=== PATIENT | male | born 1985 | race Caucasian/White ===

== ENCOUNTER 2020-09-28 14:52 | Outpatient (CLI) | payer OTHER, SELFPAY ==
--- NOTE | ~2020-09-28 | XR_ITS ---
XR knee LT 3V DATE: 09/28/2020 15:18 INDICATION: Lateral left knee pain TECHNIQUE: [place], AP, lateral views COMPARISON: None FINDINGS: Tricompartment osteoarthritis is noted, involving particularly the patellofemoral and media l compartments, with prominent periarticular spurring, moderate joint space narrowing. Subtle chondro calcinosis. No fracture or dislocation or joint effusion. No periosteal reaction or bone destruction. IMPRESSION: Prominent osteoarthritis and subtle chondrocalcinosis Reviewed, dictated and finalized at location B.
== END 2020-09-28 14:53 | disposition home or self-care (01) ==
LOC: CHSIMG 14:56
PROVIDERS: PCP Family Medicine; Visit Provider Family Medicine
DX: M25.562 Pain in left knee (principal)
CPT/HCPCS: 73562

== ENCOUNTER 2020-10-07 08:19 | Outpatient (CLI) | payer OTHER, SELFPAY ==
--- NOTE | ~2020-10-07 | MR_ITS ---
EXAMINATION: MR knee LT wo con DATE: 10/07/2020 09:11 INDICATION: Left knee pain. TECHNIQUE: Magnetic resonance imaging (MRI) of the left knee was performed without intravenous contra st. Sequences included axial PD-weighted FS FSE, coronal PD-weighted FSE and PD-weighted FS FSE, sagi ttal PD-weighted FSE, and sagittal T2-weighted FS FSE. COMPARISON: Left knee radiographs 09/28/2020 FINDINGS: Medial compartment: Medial meniscus is normal. There is shallow partial-thickness cartilage loss of femoral condyle and t ibial condyle. Marginal osteophytes are noted. Lateral compartment: There is maceration of body and posterior horn of lateral meniscus. There is full-thickness cartilage loss of tibial condyle involving the central, lateral, and posterior articular surface with cortical remodeling. There is full-thickness cartilage loss of femoral condyle involving the central, lateral , and posterior articular surface with mild subchondral edema-like marrow signal intensity. Patellofemoral compartment: There is cartilage surface irregularity of patella. There is deep partial thickness cartilage loss of central and lateral trochlea with mild subchondral edema-like marrow signal intensity. Ligaments and tendons: The anterior and posterior cruciate ligaments are normal. Medial collateral ligament and lateral rosalia ateral ligament complex are intact. There is mild patellar tendinopathy. Fluid: There is a small knee joint effusion. There are loose bodies in the posterior knee joint and popliteu s tendon sheath. IMPRESSION: 1. Severe chondrosis of lateral compartment, moderate chondrosis of patellofemoral compartment, and m ild chondrosis of medial compartment. 2. Tear of lateral meniscus. 3. Small knee joint effusion with loose bodies. Reviewed, dictated and finalized at location A. IMPRESSION: 1. Severe chondrosis of lateral compartment, moderate chondrosis of patellofemo ral compartment, and mild chondrosis of medial compartment. 2. Tear of lateral meniscus. 3. Small knee joint effusion with loose bodies.
== END 2020-10-07 08:20 | disposition home or self-care (01) ==
LOC: CHSIMG 08:20
PROVIDERS: PCP Family Medicine; Visit Provider Family Medicine
DX: M25.562 Pain in left knee (principal)
CPT/HCPCS: 73721

== ENCOUNTER 2021-09-02 09:37 | Emergency (ER) | payer SELFPAY ==
--- NOTE | ~2021-09-02 | XR_ITS ---
. EXAMINATION: XR knee LT 3V DATE: 09/02/2021 10:25 INDICATION: Medial left knee pain post twisting injury TECHNIQUE: Anteroposterior, oblique and crosstable lateral views of the left knee were obtained COMPARISON: None. FINDINGS: Alignment is normal. No fracture. At least mild joint space narrowing with moderate size marginal os teophytes at the lateral compartment. Additional small to moderate size marginal osteophytes in the m edial and patellofemoral compartments. No joint effusion/layering lipohemarthrosis. Soft tissues are unremarkable. IMPRESSION: 1. No acute osseous abnormality. 2. At least mild tricompartmental osteoarthritis of the left knee although severity of joint space na rrowing can be underestimated on nonweightbearing imaging. Reviewed, dictated and finalized at location A. IMPRESSION: 1. No acute osseous abnormality. 2. At least mild tricompartmental osteoarthritis of the left knee although graham rity of joint space narrowing can be underestimated on nonweightbearing imaging .
[2021-09-02 09:45] VITALS: BP 150/102; PULSE 78; RESP 20; TEMP 36.6; O2SAT 98
[2021-09-02] MEDS: KETOROLAC (*BKC) 60 MG/2 ML VIAL IM (10:06)
--- NOTE | 2021-09-02 10:33 | ED.LOWEXIN ---
HPI - Extremity Injury (Lower) General Chief Complaint: Extremity Injury, Lower Stated Complaint: left knee pain/twisting injury Time Seen by Provider: 09/02/21 09:40 Source: patient and RN notes reviewed Mode of arrival: ambulatory Limitations: no limitations History of Present Illness complaint: knee injury Type of Injury: hyperextension Place: work Severity: moderate Severity scale (1-10): 7 Relieving factors: nothing Exacerbating factors: weight bearing and movement Associated symptoms: snap/pop sensation and able to partially bear weight Other symptoms: none Treatments prior to arrival: cold therapy Related Data Allergies Allergy/AdvReac Type Severity Reaction Status Date / Time No Known Allergies Allergy Verified 10/31/20 11:00 Review of Systems Review of Systems: All systems reviewed & are unremarkable except as noted in HPI and below PMFSH Past Medical History Medical History Arthritis Left knee pain Wheezing Surgical History Surgical History History of arthroscopic knee surgery Meniscus repair History of hernia repair Social History Social History Smoking packs per day: 1 Smoking cigarettes per day: 20.0 Years smoked: 15 Smoking pack-years: 15.00 Smoking status: Current every day smoker Tobacco type: cigarettes and e-cigarettes/vaping Alcohol intake: never Substance use: current Substance use type: marijuana Exam Const: General: healthy appearing, no acute distress and alert Nutritional Appearance: obese Orientation/consciousness: patient oriented x3 HENMT: Head: normal to inspection Ears: external ears normal, TM's normal bilaterally and EAC's normal General nose exam: Normal external nose present and Normal nares present Face and sinus: normal facial exam and sinuses nontender Mouth: Yes moist mucous membranes Eyes: Conjunctivae: conjunctivae normal Pupils: Equal, round and reactive pupils present EOM: EOMs intact bilaterally Neck: Neck: normal visual inspection and no lymphadenopathy Chest: Chest palpation & inspection: normal inspection of the chest Resp: Effort & Inspection: normal respiratory effort Auscultation: clear to auscultation bilaterally Cardio: Rate: regular rate Rhythm: regular rhythm GI: GI Palp: Yes Soft to palpation and No Tenderness to palpation present (GI) Auscultation: normal bowel sounds : General: Yes bladder normal to palpation and Yes no CVA tenderness Male General Exam: Yes normal external exam Back/Spine/Pelvis: Back: no CVA tenderness Skin: General skin exam: normal color Rashes: no rashes Neuro: General: patient oriented x3, moves all extremities, no meningeal signs, no focal motor deficits and CN's II-XI intact bilaterally Extrem: General: no pedal edema Other: minimal effusion medial left knee with full ROM, pain-ful. NO acute neurovascular deficit. Psych: Appearance: grossly normal and well kempt Mental Status: mental status grossly normal Affect: normal affect Attitude: cooperative Thought content: Yes Normal thought content present Course Course Emergency Course: Pt was stable in the ED, less knee pain. Reevaluation(s) Reevaluation #1: VSS. Consultations Date: 09/02/21 Time: 10:25 MDM - Extremity Injury (Lower) Differential Diagnosis Differential diagnosis: Likely acute internal derangement of knee Medical Records Attestation: I reviewed the patient's medical records. Imaging Data Radiologist's impression: See the report. Critical Care Time Critical Care Time Critical Care Time: No Total Critical Care Time: 0 Discharge Plan Discharge Clinical Impression: Left knee pain Patient Disposition: Home, Self-Care Condition: Stable Instructions: Antibiotic Form, Knee Sprain (ED) Additional Instructions: Home. May RTC prn
[2021-09-02 11:10] VITALS: BP 153/98; PULSE 75; RESP 20; TEMP 36.6; O2SAT 97
== END 2021-09-02 11:15 | disposition home or self-care (01) ==
PROVIDERS: Emergency Provider Emergency Medicine; PCP Family Medicine
DX: M25.562 Pain in left knee (principal)
CPT/HCPCS: 73562; 96372; 99283; J1885; L1830

== ENCOUNTER 2021-12-25 08:50 | Outpatient (CLI) | payer OTHER, SELFPAY ==
--- NOTE | ~2021-12-25 | XR_ITS ---
XR knee LT min 4V 12/25/2021 09:37 Indication: Left knee pain Procedure: 4 views left knee Comparison: 09/02/2021 Findings: There is moderate tricompartment osteoarthritis of the left knee. No fracture, subluxation or dislocation. No significant joint effusion. Impression: 1: Moderate tricompartment osteoarthritis of the left knee. Reviewed, dictated and finalized at location B. Impression: 1: Moderate tricompartment osteoarthritis of the left knee.
== END 2021-12-25 08:51 | disposition home or self-care (01) ==
LOC: CHSIMG 08:57
PROVIDERS: PCP Family Medicine; Visit Provider Orthopaedic Surgery
DX: M25.562 Pain in left knee (principal); M17.12 Unilateral primary osteoarthritis, left knee
CPT/HCPCS: 73564

== ENCOUNTER 2022-01-16 01:30 | Day surgery (SDC) | payer OTHER, SELFPAY ==
[2022-01-07 14:49] VITALS: BMI 45.6
--- NOTE | 2022-01-07 15:23 | SUR.PREOP ---
Report to the Outpatient Waiting Room, entrance under the green pavilion located off [facility], at time 1130 on date 01/16/2022. OR Time: 1330. - You and your visitor will be asked to self-screen and do not enter if you have any COVID symptoms. - Only one visitor and NO children visitors are allowed at this time. - The patient visitor is requested to leave or wait in car when not with patient due to restrictions. - A mask is required within the hospital. Patients may have clear liquids (water, carbonated beverages, clear teas, apple juice) until 3 hours prior to surgery with a maximum of 20 ounces. - No food from midnight until time of surgery - Infants may have breast milk until 4 hours before surgery, formula 6 hours prior to surgery. - Children will be allowed to drink immediately following surgery. If applicable, please bring a bottle or sippy cup to assist with drinking. Juice, water, soda, and popsicles are readily available. For infants on formula, please bring formula the day of surgery. Pacifiers are allowed. Take the following medications with a SIP of water the morning of surgery: N/A Medications to discontinue per physician N/A Date to take last dose N/A Please no make-up, nail tajik, hairspray, perfume, deodorant, or body powder the day of surgery. No jewelry (including any body piercings) or valuables the day of surgery, leave them at home. Please take a shower or bath the night before, or the morning of, surgery with an antibacterial soap. Wear comfortable, loose fitting clothing. Children are encouraged to wear pajamas. - Jewelry must be removed prior to entering the operating room. Rings and piercings that are not removed may be cut off. - The hospital will not accept responsibility for valuables. - Please leave all valuables, including medications, at home the day of surgery. If you are going home after surgery, a licensed patrol driver must drive you home. - NO public transportation without another adult. - We recommend that an adult stay with you for 24 hours following discharge. - We also recommend that you do not drive, make important decision, drink alcoholic beverages, or take any drugs that were not prescribed by your health care provider for at least 24 hours after your discharge time. For Pediatric surgeries, we recommend two adults accompany the child home (only one inside the building at this time). Follow any additional instructions given to you from your surgeon. If you or anyone in your household have experienced Covid symptoms in the past week, please notify your surgeon or the nurse liaison at the phone number below for possible testing. Telephone instructions given to PETER PETTY and asked if any additional questions and then verbalized understanding. Patient advised to call surgeon office or pre surgery nurse liaison [phone] if any additional questions.
--- NOTE | 2022-01-16 07:12 | WPDHPUPDATE1 ---
History and Physical Update Update Date/Time: 01/16/22 07:12 History and Physical has been reviewed, including an updated exam of the patient. There are NO changes in the patient's condition. Risks, benefits, and alternatives have been discussed and questions answered. Patient agrees to proceed with procedure.
--- NOTE | 2022-01-16 10:34 | SUR.PREOP ---
1017-CALLED PT AND NOTIFIED SURGEON HAS UNKNOWN TIME OF DELAY AND INFORMED WE WILL CALL PT BACK WITH NEW ARRIVAL TIME FOR TODAY. VERBALIZES UNDERSTANDING.
--- NOTE | 2022-01-16 11:34 | SUR.PREOP ---
1130-SPOKE WITH PT RE: DELAY-ESTIMATED TO BE 2 HOURS. REQUESTED PT ARRIVE AT 1330 FOR 1530 SURGERY.
[2022-01-16] MEDS: ACETAMINOPHEN 500 MG TABLET 1000 MG PO (13:39)
[2022-01-16] MEDS: CELECOXIB 200 MG CAPSULE PO (13:39)
[2022-01-16 13:45] VITALS: BP 151/99; PULSE 79; RESP 20; TEMP 36.7; O2SAT 97
[2022-01-16] MEDS: LACTATED RINGERS 1,000 ML 30 ML IV CONT ×2 (13:50→16:21)
--- NOTE | 2022-01-16 15:03 | P.PNAN_ITS ---
Anes - Initial Pre Proc Eval Procedure: Operation Date: 01/16/22 13:30 Proposed Procedures p Left Knee Arthroscopy, Proceed As Indicated - Vineet Davis MD Date/Time: 01/16/22 15:03 Surgeon: Vineet Davis MD Pre Op Diagnosis: left knee lateral meniscus tear Patient Data Age: 36 Gender: M Height: 1.73 m Weight: 135 kg Last Vital Signs Temp 36.7 C 01/16/22 13:45 Pulse 79 01/16/22 13:45 Resp 20 01/16/22 13:45 BP 151/99 H 01/16/22 13:45 Pulse Ox 97 01/16/22 13:45 O2 Del Method Room Air 01/16/22 13:45 Allergies Allergy/AdvReac Type Severity Reaction Status Date / Time No Known Allergies Allergy Verified 01/07/22 15:22 Home Medications Medication Instructions Recorded Confirmed Type chlorhexidine gluconate 4 % 1 applic topical ONCE #237 mL 01/09/22 01/16/22 Rx topical liquid (Hibiclens) Patient hx anesthesia problems: none Family hx anesthesia problems: none Results Review: All pre-operative results and documents have been reviewed as part of the pre- operative evaluation. [facility] Past Medical History Medical History (Updated 01/16/22 @ 15:03 by Kristian Combs MD) Arthritis Left knee pain Morbid obesity Wheezing Surgical History Surgical History History of arthroscopic knee surgery Meniscus repair History of hernia repair Social History Social History Smoking packs per day: 1 Smoking cigarettes per day: 20.0 Years smoked: 15 Smoking pack-years: 15.00 Smoking status: Current every day smoker Tobacco type: cigarettes Alcohol intake: never Substance use: current Substance use type: marijuana Other substance usage details: DAILY Living arrangements: alone Spiritual care concerns: No Anes - Eval Final PreProcedure Day of Procedure 01/16/22 15:03 Patient weight: morbidly obese Heart: regular rate and rhythm Lungs: clear to auscultation Airway: Mallampati scale class II Neurological: alert and oriented Last oral intake: >/= 8 hours ASA classification: III Emergent: no Anesthetic plan: proceed Anesthesia type and monitoring: general GIVS and standard monitoring Results Review: All pre-operative results and documents have been reviewed as part of the pre- operative evaluation. Informed Consent: The patient's anesthetic plan and its attendant risks and benefits were discussed with the patient/family/POA. Questions were solicited and answers provided to the satisfaction of the patient/family/POA.
[2022-01-16] MEDS: ceFAZolin 3 GM/D5W 100 ML 100 ML IVPB (15:15)
[2022-01-16 16:10] VITALS: BP 122/77; PULSE 70; RESP 12; TEMP 36.8; O2SAT 100
[2022-01-16 16:25] VITALS: BP 131/79; PULSE 69; RESP 16; O2SAT 100
[2022-01-16] MEDS: ONDANSETRON INJ 4 MG/2 ML VIAL IV PUSH (16:37)
[2022-01-16 16:40] VITALS: BP 112/86; PULSE 69; RESP 16; O2SAT 95
[2022-01-16] MEDS: fentaNYL CITRATE INJ (*CRX) 100 MCG/2 ML VIAL 25 MCG IV PUSH ×3 (16:48→17:01)
[2022-01-16 16:55] VITALS: BP 130/81; PULSE 70; RESP 16; O2SAT 97
[2022-01-16 17:10] VITALS: BP 140/98; PULSE 74; RESP 16
--- NOTE | 2022-01-16 17:20 | W.PM.PROC2 ---
Procedure Note - Detailed Date of Procedure 01/16/22 Pre-op Diagnosis left knee lateral meniscus tear Post-op Diagnosis Other (LEFT KNEE LATERAL MENISCUS TEAR, LATERAL COMPARTMENT DJD) Procedure Performed LEFT KNEE SCOPE Surgeon Vineet Davis MD Anesthesia General Description of Procedure PATIENT WAS TAKEN TO THE OR. LEFT LEG WAS PREPPED AND DRAPED STERILE. TROCARS WERE PLACED IN THE USUAL FASHION. CAMERA WAS INTRODUCED. THERE WAS CHONDROMALACIA TO THE PATELLA FEMORAL JOINT. THERE WAS A LOT OF SYNOVITIS IN ALL COMPARTMENTS. THE MEDIAL COMPARTMENT SHOWED A CHONDRAL DEFECT ON THE MEDIAL FEMORAL CONDYLE. CHONDROMALACIA TO THE MEDIAL FEMORAL CONDYLE. A SHAVER WAS USED TO PREFORM A CHONDROPLASTY. THERE WAS NO EVIDENCE OF MEDIAL MENISCUS TEAR. THE ACL WAS INTACT. THE LATERAL MENISCUS WAS TORN AND THERE WAS EVIDENCE OF PRIOR LARGE RESECTION OF LATERAL MENISCUS. THERE WERE MULTIPLE DEGENERATIVE TEARS OF THE LATERAL MENISCUS THAT WERE DEBRIDED WITH A SHAVER. THERE WAS AL LARGE AREA OF FULL THICKNESS CARTILAGE DEFECT ON BOTH SIDES OF THE LATERAL COMPARTMENT OVER THE LATERAL FEMORAL CONDYLE AND TIBIAL PLATEAU. LIMITED CHONDROPLASTY WAS PREFORMED. A SYNOVECTOMY WAS PREFORMED WELL. THE PATELLO FEMORAL JOINT UNDERWENT CHONDROPLASTY. THERE WAS GRADE 3 CHONDROMALACIA IN PART OF THE TROCHLEA AND PART OF THE PATELLA. SYNOVECTOMY WAS PREFORMED IN THE SUPERIOR MEDIAL COMPARTMENT. THE WOUNDS WERE APPROXIMATED WITH 4.0 NYLON. STERILE DRESSING WAS APPLIED. PATIENT WAS EXTUBATED. Estimated Blood Loss -5.0 Complications No immediate complications Condition Stable Disposition PACU
== END 2022-01-16 17:40 | disposition home or self-care (01) ==
PROVIDERS: PCP Family Medicine; Visit Provider Orthopaedic Surgery
PROC: (CPT 29870; principal; 2022-01-16 13:30)
DX: S83.282A Other tear of lateral meniscus, current injury, left knee, initial encounter (principal); M17.12 Unilateral primary osteoarthritis, left knee; M94.262 Chondromalacia, left knee; M65.862 Other synovitis and tenosynovitis, left lower leg; X50.0XXA Overexertion from strenuous movement or load, initial encounter; F17.210 Nicotine dependence, cigarettes, uncomplicated; E66.01 Morbid (severe) obesity due to excess calories; Z68.42 Body mass index [BMI] 45.0-49.9, adult
CPT/HCPCS: 29881; A9270; J0690; J1100; J1170; J2250; J2405; J2704; J3010; J7120